=== PATIENT | male | born 1960 | race African-American/Black ===

== ENCOUNTER 2019-04-30 09:16 | Inpatient (IN) ==
[2019-04-30] MEDS ORDERED: SODIUM CHLORIDE 0.9% 1,000 ML IV STA (10:21)
[2019-04-30 10:35] LABS: Basophils # 0.2 10*3/uL (0.0-0.2); Eosinophils # 0.5 10*3/uL (0.0-0.87); Eosinophils % 4.8 % (0.00-10.9); Hematocrit 27.3 VOL% (42.0-52.0); Hemoglobin 8.6 GM/DL (14.0-18.0); Immature Granulocytes % 0.4 %; Immature Granulocytes Absolute 0.04 #; Lymphocytes # 4.1 10*3/uL (1.4-4.0); Lymphocytes % 42.3 % (21.2-54.2); Mean Corpuscular HGB Conc 31.5 GM/DL (32-36); Mean Corpuscular Volume 74.4 FL (87-102); Monocytes % 8.1 % (1.7-12.7); NRBC # 0.03 10*3/uL; Neutrophils % 42.4 % (38.7-73.9); Platelet Count 331 T/CUMM (130-400); Red Blood Count 3.67 MC/CUMM (3.8-5.5); Red Cell Distribution Width 22.8 % (9.3-17.3); White Blood Count 9.7 T/CUMM (4-12)
[2019-04-30 10:44] LABS: PT Patient Result 10.7 SECS (9.6-12.2); Partial Thromboplastin Time 36.2 SECS (20.8-36.0)
[2019-04-30 11:06] LABS: Alanine Aminotransferase 11 U/L (16-61); Albumin 3.1 G/DL (3.4-5.0); Alkaline Phosphatase 92 U/L (45-117); Aspartate Amino Transferase 15 U/L (0-37); Bilirubin,Total < 0.39 MG/DL (0.2-1.0); Blood Urea Nitrogen 71 MG/DL (7-18); Calcium 8.6 MG/DL (8.5-10.1); Estimated Glom Filtration Rate 10 ML/MIN; Glucose 106 MG/DL (74-106); Osmolality,Calculated 299.4 MOS/KG (273-304); Total Protein 8.5 G/DL (6.4-8.3); Troponin I < 0.015 NG/ML (0.00-0.045)
[2019-04-30] MEDS ORDERED: ACETAMINOPHEN 325 MG TABLET PO PRN (13:19)
[2019-04-30] MEDS ORDERED: ONDANSETRON 4 MG/2 ML VIAL IV PRN (13:19)
[2019-04-30] MEDS ORDERED: SODIUM BICARB INJ 50 MEQ in SODIUM CHLORIDE 0.45% 1,000 ML IV SCH (13:30)
[2019-04-30 18:00] LABS: Apearance,Urine CLEAR (Clear); Bilirubin,Urine Negative (Negative); Blood, Urine Small mg/dL (Negative); Glucose,Urine (UA) Negative (Negative); Hyaline Casts,Urine 4 /LPF (0-3); Ketones,Urine 5 mg/dL (Negative); Nitrite,Urine Negative (Negative); Protein,Urine 100 MG/DL; RBC,Urine 4 /HPF (0-4); Urine Color Yellow (Yellow); Urine Specific Gravity 1.012 (1.001-1.035); Urine Urobilinogen < 2.0 EU/DL (0.2-1.0); WBC,Urine 1 /HPF (0-6)
[2019-04-30] MEDS: MEGESTROL 40 MG TABLET PO SCH (20:31)
[2019-04-30] MEDS: FERROUS SULFATE 325 MG TABLET PO SCH (20:31)
[2019-04-30] MEDS: ENOXAPARIN 30 MG/0.3 ML SYRINGE SUBCUT SCH (20:31)
[2019-04-30] MEDS: SODIUM CHLORIDE 23.4% CONC INJ 38.5 MEQ, SODIUM BICARB INJ 100 MEQ in STERILE WATER INJ... IV SCH (20:46)
[2019-05-01 04:52] LABS: Basophils # 0.1 10*3/uL (0.0-0.2); Basophils % 1.4 % (0.0-0.8); Eosinophils # 0.4 10*3/uL (0.0-0.87); Eosinophils % 5.6 % (0.00-10.9); Hematocrit 24.6 VOL% (42.0-52.0); Immature Granulocytes % 0.7 %; Immature Granulocytes Absolute 0.05 #; Lymphocytes # 2.6 10*3/uL (1.4-4.0); Lymphocytes % 36.5 % (21.2-54.2); Mean Corpuscular HGB Conc 32.5 GM/DL (32-36); Mean Corpuscular Volume 72.8 FL (87-102); Monocytes % 10.7 % (1.7-12.7); NRBC # 0.02 10*3/uL; Neutrophils % 45.1 % (38.7-73.9); Platelet Count 244 T/CUMM (130-400); Red Blood Count 3.38 MC/CUMM (3.8-5.5); Red Cell Distribution Width 22.5 % (9.3-17.3); White Blood Count 7.1 T/CUMM (4-12)
[2019-05-01 05:11] LABS: Hypochromasia 1+; Ovalocytes Slight; Platelet Estimate Adequate
[2019-05-01 05:13] LABS: Calcium 7.6 MG/DL (8.5-10.1); Osmolality,Calculated 302.1 MOS/KG (273-304)
[2019-05-01] MEDS: PANTOPRAZOLE 40 MG TABLET PO SCH (08:23)
[2019-05-01] MEDS: CYANOCOBALAMIN 500 MCG TABLET PO SCH (08:23)
[2019-05-01] MEDS: SODIUM CHLORIDE 23.4% CONC INJ 38.5 MEQ, SODIUM BICARB INJ 100 MEQ in STERILE WATER INJ... IV SCH ×2 (08:23→22:17)
[2019-05-01] MEDS: MEGESTROL 40 MG TABLET PO SCH ×2 (08:23→21:11)
[2019-05-01] MEDS: FERROUS SULFATE 325 MG TABLET PO SCH ×2 (08:23→21:11)
[2019-05-01] MEDS ORDERED: MAGNESIUM SULF RIDER 2 GM in PREMIX 1 EACH IV PRN (08:43)
[2019-05-01] MEDS ORDERED: MAGNESIUM SULF RIDER 4 GM in PREMIX 1 EACH IV PRN (08:43)
[2019-05-01] MEDS ORDERED: ATENOLOL 50 MG TABLET PO SCH (09:00)
[2019-05-01] MEDS ORDERED: amLODIPine 10 MG TABLET PO SCH (09:00)
[2019-05-01] MEDS: SODIUM BICARBONATE 650 MG TABLET PO SCH (21:11)
[2019-05-01] MEDS: ENOXAPARIN 30 MG/0.3 ML SYRINGE SUBCUT SCH (21:11)
[2019-05-02 06:59] LABS: Basophils # 0.1 10*3/uL (0.0-0.2); Basophils % 0.9 % (0.0-0.8); Eosinophils # 0.3 10*3/uL (0.0-0.87); Eosinophils % 4.5 % (0.00-10.9); Hematocrit 20.1 VOL% (42.0-52.0); Immature Granulocytes % 0.5 %; Immature Granulocytes Absolute 0.04 #; Lymphocytes # 2.9 10*3/uL (1.4-4.0); Lymphocytes % 38.7 % (21.2-54.2); Mean Corpuscular HGB Conc 33.8 GM/DL (32-36); Mean Corpuscular Volume 70.5 FL (87-102); Neutrophils % 43.4 % (38.7-73.9); Platelet Count 246 T/CUMM (130-400); Red Blood Count 2.85 MC/CUMM (3.8-5.5); Red Cell Distribution Width 21.4 % (9.3-17.3); White Blood Count 7.6 T/CUMM (4-12)
[2019-05-02 07:00] LABS: Hemoglobin 6.8 GM/DL (14.0-18.0)
[2019-05-02 07:14] LABS: Anisocytosis 2+; Platelet Estimate Normal; Poikilocytosis 1+
[2019-05-02 07:15] LABS: Hypochromasia 1+; Macrocytosis Slight; Target Cells 2+
[2019-05-02 07:43] LABS: Calcium 7.6 MG/DL (8.5-10.1); Osmolality,Calculated 302.6 MOS/KG (273-304)
[2019-05-02 08:33] LABS: % Iron Saturation 32.4 % (18-50); Ferritin 453.9 ng/ml (26-388)
[2019-05-02 08:57] LABS: Hematocrit 23.1 VOL% (42.0-52.0); Hemoglobin 7.6 GM/DL (14.0-18.0)
[2019-05-02] MEDS: SODIUM BICARBONATE 650 MG TABLET PO SCH ×2 (09:20→21:01)
[2019-05-02] MEDS: SODIUM CHLORIDE 23.4% CONC INJ 38.5 MEQ, SODIUM BICARB INJ 100 MEQ in STERILE WATER INJ... IV SCH ×2 (09:21→22:24)
[2019-05-02] MEDS: MEGESTROL 40 MG TABLET PO SCH ×2 (09:21→21:00)
[2019-05-02] MEDS: PANTOPRAZOLE 40 MG TABLET PO SCH (09:21)
[2019-05-02] MEDS: CYANOCOBALAMIN 500 MCG TABLET PO SCH (09:21)
[2019-05-02] MEDS: FERROUS SULFATE 325 MG TABLET PO SCH ×2 (09:21→21:00)
[2019-05-02 09:40] LABS: Folate 4.7 NG/ML (5.4-24.0); Vitamin B12 > 2000 PG/ML (211-911)
[2019-05-02] MEDS ORDERED: SODIUM CHLORIDE 0.9% 1,000 ML IV PRN (09:57)
[2019-05-02 17:10] LABS: Hematocrit 27.5 VOL% (42.0-52.0); Hemoglobin 9.2 GM/DL (14.0-18.0)
[2019-05-02] MEDS: ACETAMINOPHEN 500 MG TABLET PO PRN (21:00)
[2019-05-02] MEDS: ENOXAPARIN 30 MG/0.3 ML SYRINGE SUBCUT SCH (21:01)
[2019-05-03 08:40] LABS: Calcium 6.9 MG/DL (8.5-10.1)
[2019-05-03] MEDS: MEGESTROL 40 MG TABLET PO SCH ×2 (09:12→21:34)
[2019-05-03] MEDS: SODIUM BICARBONATE 650 MG TABLET PO SCH ×2 (09:12→21:34)
[2019-05-03] MEDS: CYANOCOBALAMIN 500 MCG TABLET PO SCH (09:12)
[2019-05-03] MEDS: FERROUS SULFATE 325 MG TABLET PO SCH ×2 (09:12→21:37)
[2019-05-03] MEDS: PANTOPRAZOLE 40 MG TABLET PO SCH (09:12)
[2019-05-03] MEDS: ACETAMINOPHEN 500 MG TABLET PO PRN ×2 (09:17→21:34)
[2019-05-03] MEDS: SODIUM CHLORIDE 23.4% CONC INJ 38.5 MEQ, SODIUM BICARB INJ 100 MEQ in STERILE WATER INJ... IV SCH (10:31)
[2019-05-03] MEDS: POTASSIUM CHLORIDE 20 MEQ TABLET PO PRN ×3 (13:41→18:35)
[2019-05-03] MEDS: ENOXAPARIN 30 MG/0.3 ML SYRINGE SUBCUT SCH (21:36)
[2019-05-04 07:28] LABS: Calcium 7.2 MG/DL (8.5-10.1); Osmolality,Calculated 300.6 MOS/KG (273-304)
[2019-05-04] MEDS: PANTOPRAZOLE 40 MG TABLET PO SCH (09:22)
[2019-05-04] MEDS: CYANOCOBALAMIN 500 MCG TABLET PO SCH (09:22)
[2019-05-04] MEDS: FERROUS SULFATE 325 MG TABLET PO SCH (09:23)
[2019-05-04] MEDS: SODIUM BICARBONATE 650 MG TABLET PO SCH (09:23)
[2019-05-04] MEDS: MEGESTROL 40 MG TABLET PO SCH (09:23)
[2019-05-04 12:21] VITALS: BP 143/84
== END 2019-05-04 13:25 | disposition home or self-care (01) | DRG 469 ==
LOC: N.ED 09:16 → SUPCPDRO 13:19 → SUATTDRO 13:19 → N.EDINP 13:19 → N.2E 14:02
PROVIDERS: ADMIT Internal Medicine; ATTEND Internal Medicine

== ENCOUNTER 2019-07-07 07:32 | Inpatient (IN) ==
[2019-07-07] MEDS ORDERED: methylPREDNISolone SOD SUC 125 MG/2 ML VIAL IV STA (07:48)
[2019-07-07] MEDS ORDERED: ALBUTEROL 2.5 MG/3 ML NEB RESP TX SCH (08:00)
[2019-07-07 08:03] LABS: Basophils # 0.1 10*3/uL (0.0-0.2); Basophils % 0.6 % (0.0-0.8); Eosinophils # 0.6 10*3/uL (0.0-0.87); Eosinophils % 3.2 % (0.00-10.9); Hematocrit 30.1 VOL% (42.0-52.0); Hemoglobin 9.6 GM/DL (14.0-18.0); Immature Granulocytes % 0.5 %; Immature Granulocytes Absolute 0.09 #; Lymphocytes # 5.9 10*3/uL (1.4-4.0); Lymphocytes % 34.3 % (21.2-54.2); Mean Corpuscular HGB Conc 31.9 GM/DL (32-36); Mean Corpuscular Volume 80.3 FL (87-102); Monocytes % 7.6 % (1.7-12.7); Neutrophils % 53.8 % (38.7-73.9); Platelet Count 250 T/CUMM (130-400); Red Blood Count 3.75 MC/CUMM (3.8-5.5); Red Cell Distribution Width 20.3 % (9.3-17.3); White Blood Count 17.1 T/CUMM (4-12)
[2019-07-07 08:10] LABS: PT Patient Result 10.9 SECS (9.6-12.2); Partial Thromboplastin Time 28.1 SECS (20.8-36.0)
[2019-07-07 08:32] LABS: ABG HCO3 17.7 MMOL/L (20-26); ABG Oxygen Saturation 77.1 % (95-100); ABG PCO2 35.3 MM HG (35-48); ABG PH 7.307 (7.35-7.45); ABG PO2 48.9 MM HG (80-95); ABG TCO2 15.6 MMOL/L (23-27)
[2019-07-07 08:33] LABS: Alanine Aminotransferase 9 U/L (16-61); Albumin 2.8 G/DL (3.4-5.0); Alkaline Phosphatase 67 U/L (45-117); Aspartate Amino Transferase 15 U/L (0-37); Bilirubin,Total < 0.39 MG/DL (0.2-1.0); Blood Urea Nitrogen 58 MG/DL (7-18); Calcium 7.5 MG/DL (8.5-10.1); Estimated Glom Filtration Rate 10 ML/MIN; Glucose 143 MG/DL (74-106); Osmolality,Calculated 298.3 MOS/KG (273-304)
[2019-07-07] MEDS ORDERED: FUROSEMIDE 40 MG/4 ML VIAL IV STA (08:35)
[2019-07-07] MEDS ORDERED: LEVOFLOXACIN INJ 500 MG in PREMIX 1 EACH IV STA (08:35)
[2019-07-07] MEDS ORDERED: ONDANSETRON 4 MG/2 ML VIAL ONE (08:48)
[2019-07-07 09:05] LABS: Apearance,Urine CLEAR (Clear); Bilirubin,Urine Negative (Negative); Blood, Urine Small mg/dL (Negative); Glucose,Urine (UA) 50 mg/dL (Negative); Ketones,Urine Negative (Negative); Nitrite,Urine Negative (Negative); Protein,Urine >=500 MG/DL; RBC,Urine 6 /HPF (0-4); Urine Color Straw (Yellow); Urine Specific Gravity 1.012 (1.001-1.035); Urine Urobilinogen < 2.0 EU/DL (0.2-1.0)
[2019-07-07] MEDS ORDERED: PROMETHAZINE 25 MG/1 ML VIAL IM PRN (09:13)
[2019-07-07] MEDS ORDERED: ONDANSETRON 4 MG/2 ML VIAL IV PRN (09:13)
[2019-07-07] MEDS ORDERED: MORPHINE 4 MG/1 ML VIAL IV PRN (09:13)
[2019-07-07 10:02] LABS: ABG Base Excess -10.3 MMOL/L (-2.5-2.5); ABG HCO3 14.7 MMOL/L (20-26); ABG Oxygen Saturation 84.2 % (95-100); ABG PCO2 29.5 MM HG (35-48); ABG PH 7.316 (7.35-7.45); ABG PO2 54.4 MM HG (80-95); ABG TCO2 15.6 MMOL/L (23-27)
[2019-07-07 10:47] LABS: Protein/Creatinine Ratio,Urine 7.8 RATIO
[2019-07-07] MEDS: PANTOPRAZOLE 40 MG TABLET PO SCH (10:49)
[2019-07-07] MEDS ORDERED: MAGNESIUM SULF RIDER 4 GM in PREMIX 1 EACH IV ONE (11:30)
[2019-07-07] MEDS ORDERED: ACETAMINOPHEN 500 MG TABLET PO ONE (12:00)
[2019-07-07] MEDS: metOLazone 5 MG TABLET PO SCH (12:52)
[2019-07-07] MEDS: ALBUTEROL/IPRATROPIUM 3 ML NEB RESP TX SCH ×2 (13:30→20:12)
[2019-07-07] MEDS: FUROSEMIDE 40 MG/4 ML VIAL IV SCH (16:13)
[2019-07-07] MEDS: predniSONE 20 MG TABLET PO SCH (20:51)
[2019-07-07] MEDS: ACETAMINOPHEN 325 MG TABLET PO PRN (22:01)
[2019-07-08] MEDS: ALBUTEROL/IPRATROPIUM 3 ML NEB RESP TX SCH ×4 (00:16→19:47)
[2019-07-08 05:26] LABS: Hematocrit 24.2 VOL% (42.0-52.0); Immature Granulocytes % 0.6 %; Immature Granulocytes Absolute 0.03 #; Lymphocytes # 0.9 10*3/uL (1.4-4.0); Lymphocytes % 17.1 % (21.2-54.2); Mean Corpuscular HGB Conc 33.1 GM/DL (32-36); Mean Corpuscular Volume 78.1 FL (87-102); Monocytes % 4.3 % (1.7-12.7); Platelet Count 173 T/CUMM (130-400); Red Cell Distribution Width 20.2 % (9.3-17.3); White Blood Count 5.1 T/CUMM (4-12)
[2019-07-08 05:45] LABS: Calcium 7.9 MG/DL (8.5-10.1); Osmolality,Calculated 290.1 MOS/KG (273-304)
[2019-07-08 05:47] LABS: Alanine Aminotransferase < 9 U/L (16-61); Albumin 2.7 G/DL (3.4-5.0); Alkaline Phosphatase 55 U/L (45-117); Aspartate Amino Transferase 10 U/L (0-37); Bilirubin,Total < 0.39 MG/DL (0.2-1.0); Blood Urea Nitrogen 58 MG/DL (7-18); Estimated Glom Filtration Rate 10 ML/MIN; Glucose 187 MG/DL (74-106); HDL Cholesterol 36 MG/DL (40-60); Hypochromasia 1+; Osmolality,Calculated 288.2 MOS/KG (273-304); Ovalocytes Slight; Platelet Estimate Adequate; Risk Ratio 3.14; Total Protein 7.2 G/DL (6.4-8.3); Triglycerides 109 MG/DL (2-150); VLDL CHOLESTEROL 21.8 MG/DL
[2019-07-08] MEDS: ACETAMINOPHEN 325 MG TABLET PO PRN ×2 (06:35→10:23)
[2019-07-08] MEDS ORDERED: predniSONE 10 MG TABLET ONE (08:10)
[2019-07-08] MEDS: metOLazone 5 MG TABLET PO SCH (09:06)
[2019-07-08] MEDS: predniSONE 20 MG TABLET PO SCH ×2 (09:06→21:02)
[2019-07-08] MEDS: FUROSEMIDE 40 MG/4 ML VIAL IV SCH ×2 (09:07→16:23)
[2019-07-08] MEDS: PANTOPRAZOLE 40 MG TABLET PO SCH (09:07)
[2019-07-08] MEDS: PIPERACILLIN/TAZOBACTAM 3,375 MG in SODIUM CHLORIDE 0.9% 100 ML IV SCH ×2 (10:24→23:47)
[2019-07-08] MEDS ORDERED: NON-FORMULARY MEDICATION (Adalimumab [Humira] 40 MG) SUBCUT SCH (10:45)
[2019-07-08] MEDS ORDERED: amLODIPine 10 MG TABLET PO ONE (12:18)
[2019-07-08] MEDS: FERROUS SULFATE 325 MG TABLET PO SCH ×4 (12:20→21:04)
[2019-07-08] MEDS: SODIUM BICARBONATE 650 MG TABLET PO SCH ×2 (12:20→21:02)
[2019-07-09] MEDS: ALBUTEROL/IPRATROPIUM 3 ML NEB RESP TX SCH ×2 (00:07→07:08)
[2019-07-09 04:49] LABS: Hematocrit 24.7 VOL% (42.0-52.0); Immature Granulocytes % 0.6 %; Immature Granulocytes Absolute 0.05 #; Lymphocytes % 12.5 % (21.2-54.2); Mean Corpuscular HGB Conc 32.4 GM/DL (32-36); Mean Corpuscular Volume 78.2 FL (87-102); Monocytes % 3.3 % (1.7-12.7); Neutrophils % 83.6 % (38.7-73.9); Platelet Count 196 T/CUMM (130-400); Red Blood Count 3.16 MC/CUMM (3.8-5.5); Red Cell Distribution Width 20.1 % (9.3-17.3); White Blood Count 7.9 T/CUMM (4-12)
[2019-07-09 05:16] LABS: Calcium 8.1 MG/DL (8.5-10.1); Osmolality,Calculated 296.8 MOS/KG (273-304)
[2019-07-09] MEDS ORDERED: SODIUM POLYSTYRENE SULFATE 15 GM/60 ML BOTTLE PO ONE (07:26)
[2019-07-09 07:37] VITALS: BP 168/95
[2019-07-09] MEDS ORDERED: FUROSEMIDE 80 MG TABLET PO SCH (08:00)
[2019-07-09] MEDS: metOLazone 5 MG TABLET PO SCH (08:49)
[2019-07-09] MEDS: predniSONE 20 MG TABLET PO SCH (08:49)
[2019-07-09] MEDS: SODIUM BICARBONATE 650 MG TABLET PO SCH (08:49)
[2019-07-09] MEDS: PANTOPRAZOLE 40 MG TABLET PO SCH (08:50)
[2019-07-09] MEDS: FERROUS SULFATE 325 MG TABLET PO SCH (08:50)
[2019-07-09] MEDS ORDERED: NON-FORMULARY MEDICATION (Omeprazole 40 MG) PO SCH (09:00)
[2019-07-09] MEDS ORDERED: hydrALAZINE 25 MG TABLET PO SCH (09:00)
[2019-07-09] MEDS ORDERED: LEVOFLOXACIN INJ 500 MG in PREMIX 1 EACH IV SCH (09:00)
[2019-07-09] MEDS ORDERED: atenoloL 50 MG TABLET PO SCH (09:00)
[2019-07-09] MEDS ORDERED: amLODIPine 10 MG TABLET PO SCH (09:00)
[2019-07-09] MEDS: PIPERACILLIN/TAZOBACTAM 3,375 MG in SODIUM CHLORIDE 0.9% 100 ML IV SCH (10:33)
== END 2019-07-09 11:26 | disposition home health service (06) | DRG 194 ==
LOC: EDBD → EDUNIT# → N.ED 07:32 → N.EDINP 09:13 → SUATTDRO 09:13 → N.2E 09:56
PROVIDERS: ADMIT Internal Medicine; ATTEND Internal Medicine

== ENCOUNTER 2020-07-25 11:24 | Inpatient (IN) ==
[2020-07-25] MEDS ORDERED: ONDANSETRON 4 MG/2 ML VIAL IV STA (11:42)
[2020-07-25] MEDS ORDERED: HYDROmorphone 2 MG/1 ML VIAL IV STA (11:42)
[2020-07-25 12:30] LABS: Basophils # 0.1 10*3/uL (0.0-0.2); Basophils % 0.9 % (0.0-0.8); Eosinophils # 0.1 10*3/uL (0.0-0.87); Eosinophils % 1.8 % (0.00-10.9); Hematocrit 30.1 VOL% (42.0-52.0); Hemoglobin 9.9 GM/DL (14.0-18.0); Immature Granulocytes % 0.8 %; Immature Granulocytes Absolute 0.06 #; Lymphocytes # 3.1 10*3/uL (1.4-4.0); Lymphocytes % 40.3 % (21.2-54.2); Mean Corpuscular HGB Conc 32.9 GM/DL (32-36); Mean Corpuscular Volume 79.4 FL (87-102); Mean Platelet Volume 12.7 FL (9.6-12.0); Monocytes % 10.8 % (1.7-12.7); NRBC # 0.05 10*3/uL; Neutrophils % 45.4 % (38.7-73.9); Platelet Count 162 T/CUMM (130-400); Red Blood Count 3.79 MC/CUMM (3.8-5.5); Red Cell Distribution Width 16.6 % (9.3-17.3); White Blood Count 7.8 T/CUMM (4-12)
[2020-07-25 12:43] LABS: INR 1.1; PT Patient Result 11.4 SECS (9.8-11.9); Partial Thromboplastin Time 27.9 SECS (23.9-33.8)
[2020-07-25 12:44] LABS: Albumin 2.7 G/DL (3.4-5.0); Bilirubin,Total 0.8 MG/DL (0.2-1.0); Calcium 8.7 MG/DL (8.5-10.1); Osmolality,Calculated 275.1 MOS/KG (273-304); Potassium 3.2 MMOL/L (3.5-5.1); Total Protein 7.7 G/DL (6.4-8.3)
[2020-07-25 12:59] LABS: Band Neutrophils 2 % (0-10); Eosinophils 1 % (0-10); Lymphocytes 39 % (20-55); Segmented Neutrophils 47 % (50-85); Total Cells Counted 100
[2020-07-25 13:00] LABS: Anisocytosis 2+; Hypochromasia 1+; Macrocytosis Slight; Platelet Estimate Normal; Poikilocytosis Slight
[2020-07-25] MEDS ORDERED: ceFAZolin 1,000 MG in SYRINGE 1 EACH IV ONE (13:19)
[2020-07-25] MEDS ORDERED: GLUCAGON 1 MG VIAL IM PRN (14:02)
[2020-07-25] MEDS ORDERED: hydrALAZINE 20 MG/1 ML VIAL IV PRN (14:02)
[2020-07-25] MEDS ORDERED: ACETAMINOPHEN 325 MG TABLET PO PRN (14:02)
[2020-07-25] MEDS ORDERED: ONDANSETRON 4 MG/2 ML VIAL IV PRN ×2 (14:02→17:55)
[2020-07-25] MEDS ORDERED: DEXTROSE 50% 25 GM/50 ML VIAL IV PRN (14:02)
[2020-07-25] MEDS ORDERED: LIDOCAINE 2% 5 ML VIAL ONE (15:21)
[2020-07-25] MEDS ORDERED: MIDAZOLAM 2 MG/2 ML VIAL ONE (15:21)
[2020-07-25] MEDS ORDERED: SEVOFLURANE 1 UNIT/15 MINUTE INH ONE ×6 (15:21→17:06)
[2020-07-25] MEDS ORDERED: propofoL 200 MG/20 ML VIAL IV ONE (15:21)
[2020-07-25] MEDS ORDERED: fentaNYL 100 MCG/2 ML VIAL ONE (15:21)
[2020-07-25] MEDS ORDERED: ROCURONIUM 50 MG/5 ML VIAL IV ONE (15:21)
[2020-07-25] MEDS ORDERED: BACITRACIN OINT 0.9 GM PACK TOP ONE (15:30)
[2020-07-25] MEDS ORDERED: PHENYLEPHRINE 1 MG/10 ML SYRINGE IV ONE ×2 (16:13)
[2020-07-25] MEDS ORDERED: ceFAZolin 1,000 MG VIAL ONE (16:24)
[2020-07-25] MEDS ORDERED: SODIUM CHLORIDE 0.9% 250 ML IV ONE (16:24)
[2020-07-25] MEDS ORDERED: ACETAMINOPHEN 1,000 MG/100 ML VIAL IV ONE (16:55)
[2020-07-25] MEDS ORDERED: NEOSTIGMINE 10 MG/10 ML VIAL ONE ×3 (17:07)
[2020-07-25] MEDS ORDERED: MAGNESIUM HYDROXIDE SUSP 30 ML UDCUP PO PRN (17:28)
[2020-07-25] MEDS ORDERED: MORPHINE 4 MG/1 ML VIAL IV PRN (17:28)
[2020-07-25] MEDS: HYDROmorphone 2 MG/1 ML VIAL IV PRN ×4 (18:00→18:15)
[2020-07-25] MEDS: DOCUSATE SODIUM 100 MG CAPSULE PO SCH (21:21)
[2020-07-25] MEDS: ceFAZolin 1,000 MG in SYRINGE 1 EACH IV SCH (23:01)
[2020-07-26 05:35] LABS: Basophils # 0.1 10*3/uL (0.0-0.2); Basophils % 0.6 % (0.0-0.8); Eosinophils # 0.1 10*3/uL (0.0-0.87); Eosinophils % 0.8 % (0.00-10.9); Hematocrit 28.5 VOL% (42.0-52.0); Hemoglobin 9.3 GM/DL (14.0-18.0); Immature Granulocytes % 0.6 %; Immature Granulocytes Absolute 0.06 #; Lymphocytes # 1.4 10*3/uL (1.4-4.0); Lymphocytes % 14.7 % (21.2-54.2); Mean Corpuscular HGB Conc 32.6 GM/DL (32-36); Mean Corpuscular Volume 79.4 FL (87-102); Mean Platelet Volume 12.3 FL (9.6-12.0); Monocytes % 9.8 % (1.7-12.7); NRBC # 0.04 10*3/uL; Neutrophils % 73.5 % (38.7-73.9); Platelet Count 131 T/CUMM (130-400); Red Blood Count 3.59 MC/CUMM (3.8-5.5); Red Cell Distribution Width 16.5 % (9.3-17.3); White Blood Count 9.8 T/CUMM (4-12)
[2020-07-26 06:23] LABS: Albumin 2.6 G/DL (3.4-5.0); Bilirubin,Total 1.2 MG/DL (0.2-1.0); Calcium 8.3 MG/DL (8.5-10.1); Osmolality,Calculated 273.4 MOS/KG (273-304); Potassium 3.8 MMOL/L (3.5-5.1); Risk Ratio 1.94; Thyroid Stimulating Hormone 1.35 uIU/ml (0.358-3.74); Total Protein 7.1 G/DL (6.4-8.3); VLDL CHOLESTEROL 30.4 MG/DL
[2020-07-26] MEDS: ceFAZolin 1,000 MG in SYRINGE 1 EACH IV SCH (08:25)
[2020-07-26] MEDS: allopurinoL 100 MG TABLET PO SCH (08:28)
[2020-07-26] MEDS: PANTOPRAZOLE 40 MG TABLET PO SCH (08:28)
[2020-07-26] MEDS: amLODIPine 10 MG TABLET PO SCH (08:28)
[2020-07-26] MEDS: DOCUSATE SODIUM 100 MG CAPSULE PO SCH ×2 (08:28→20:54)
[2020-07-26] MEDS: atenoloL 50 MG TABLET PO SCH (08:28)
[2020-07-26] MEDS ORDERED: HEPARIN 10,000 UNIT/10 ML VIAL IV PRN (12:10)
[2020-07-26] MEDS ORDERED: TUBERCULIN SKIN TEST 0.1 ML SYRINGE INTRADERM ONE (14:49)
[2020-07-26] MEDS: HEPARIN 5,000 UNIT/1 ML VIAL SUBCUT SCH (17:53)
[2020-07-27] MEDS: HEPARIN 5,000 UNIT/1 ML VIAL SUBCUT SCH (05:59)
[2020-07-27 06:08] LABS: Basophils # 0.1 10*3/uL (0.0-0.2); Basophils % 0.6 % (0.0-0.8); Eosinophils # 0.2 10*3/uL (0.0-0.87); Eosinophils % 1.9 % (0.00-10.9); Hematocrit 22.3 VOL% (42.0-52.0); Hemoglobin 7.3 GM/DL (14.0-18.0); Immature Granulocytes % 0.6 %; Immature Granulocytes Absolute 0.05 #; Lymphocytes # 2.2 10*3/uL (1.4-4.0); Lymphocytes % 27.9 % (21.2-54.2); Mean Corpuscular HGB Conc 32.7 GM/DL (32-36); Mean Corpuscular Volume 80.2 FL (87-102); Monocytes % 10.4 % (1.7-12.7); NRBC # 0.02 10*3/uL; Neutrophils % 58.6 % (38.7-73.9); Platelet Count 94 T/CUMM (130-400); Red Blood Count 2.78 MC/CUMM (3.8-5.5); Red Cell Distribution Width 16.7 % (9.3-17.3); White Blood Count 7.8 T/CUMM (4-12)
[2020-07-27 06:25] LABS: Bilirubin,Total 1.5 MG/DL (0.2-1.0); Osmolality,Calculated 272.2 MOS/KG (273-304); Potassium 3.4 MMOL/L (3.5-5.1); Total Protein 6.2 G/DL (6.4-8.3)
[2020-07-27 07:18] VITALS: BP 104/54
[2020-07-27] MEDS ORDERED: SODIUM CHLORIDE 0.9% 1,000 ML IV PRN (07:38)
[2020-07-27 08:36] LABS: Basophils # 0.1 10*3/uL (0.0-0.2); Basophils % 0.6 % (0.0-0.8); Eosinophils # 0.2 10*3/uL (0.0-0.87); Eosinophils % 1.8 % (0.00-10.9); Hematocrit 24.6 VOL% (42.0-52.0); Hemoglobin 7.8 GM/DL (14.0-18.0); Immature Granulocytes % 0.3 %; Immature Granulocytes Absolute 0.03 #; Lymphocytes # 2.5 10*3/uL (1.4-4.0); Lymphocytes % 28.3 % (21.2-54.2); Mean Corpuscular HGB Conc 31.7 GM/DL (32-36); Mean Corpuscular Volume 81.7 FL (87-102); Mean Platelet Volume 11.8 FL (9.6-12.0); Monocytes % 11.2 % (1.7-12.7); Neutrophils % 57.8 % (38.7-73.9); Platelet Count 102 T/CUMM (130-400); Red Blood Count 3.01 MC/CUMM (3.8-5.5); Red Cell Distribution Width 17.4 % (9.3-17.3); White Blood Count 8.7 T/CUMM (4-12)
[2020-07-27] MEDS: amLODIPine 10 MG TABLET PO SCH (08:43)
[2020-07-27] MEDS: DOCUSATE SODIUM 100 MG CAPSULE PO SCH (08:43)
[2020-07-27] MEDS: allopurinoL 100 MG TABLET PO SCH (08:43)
[2020-07-27] MEDS: PANTOPRAZOLE 40 MG TABLET PO SCH (08:44)
[2020-07-27] MEDS: atenoloL 50 MG TABLET PO SCH (08:44)
[2020-07-27 08:50] LABS: Eosinophils 4 % (0-10); Lymphocytes 27 % (20-55); Platelet Estimate Adequate; Segmented Neutrophils 63 % (50-85); Total Cells Counted 100
[2020-07-27 08:51] LABS: Hypochromasia 3+; Polychromasia Slight
[2020-07-27 18:31] LABS: Eosinophils 3 % (0-10); Lymphocytes 26 % (20-55); Platelet Estimate Decreased; Segmented Neutrophils 59 % (50-85); Total Cells Counted 100
== END 2020-07-27 16:25 | DRG 313 ==
LOC: N.ED 11:24 → N.3E 16:05 → SUATTDRO 17:42 → N.3E 17:42
PROVIDERS: ADMIT Family Medicine; ATTEND Internal Medicine

== ENCOUNTER 2021-01-23 18:24 | Observation (INO) ==
[2021-01-23] MEDS ORDERED: DEXTROSE 50% 25 GM/50 ML VIAL IV PRN (20:33)
[2021-01-23] MEDS ORDERED: ACETAMINOPHEN 325 MG TABLET PO PRN (20:33)
[2021-01-23] MEDS ORDERED: GLUCAGON 1 MG VIAL IM PRN (20:33)
[2021-01-23] MEDS ORDERED: DOCUSATE SODIUM 100 MG CAPSULE PO PRN (20:33)
[2021-01-23] MEDS ORDERED: ONDANSETRON 4 MG/2 ML VIAL IV PRN (20:33)
[2021-01-24 06:54] LABS: Basophils # 0.1 10*3/uL (0.0-0.2); Basophils % 1.2 % (0.0-0.8); Eosinophils # 0.1 10*3/uL (0.0-0.87); Hematocrit 34.9 VOL% (42.0-52.0); Hemoglobin 10.9 GM/DL (14.0-18.0); Immature Granulocytes % 0.5 %; Immature Granulocytes Absolute 0.02 #; Lymphocytes # 1.8 10*3/uL (1.4-4.0); Lymphocytes % 45.6 % (21.2-54.2); Mean Corpuscular HGB Conc 31.2 GM/DL (32-36); Mean Corpuscular Volume 80.2 FL (87-102); Neutrophils % 36.7 % (38.7-73.9); Red Blood Count 4.35 MC/CUMM (3.8-5.5); Red Cell Distribution Width 19.1 % (9.3-17.3)
[2021-01-24 07:06] LABS: Platelet Count 92 T/CUMM (130-400)
[2021-01-24 07:13] LABS: INR 1.1; PT Patient Result 11.8 SECS (10.5-12.0)
[2021-01-24 07:22] LABS: Eosinophils 1 % (0-10); Hypochromasia Slight; Lymphocytes 48 % (20-55); Microcytosis Slight; Platelet Estimate Decreased; Segmented Neutrophils 40 % (50-85); Total Cells Counted 100
[2021-01-24 07:54] LABS: Osmolality,Calculated 279.4 MOS/KG (273-304); Potassium 2.6 MMOL/L (3.5-5.1)
[2021-01-24] MEDS ORDERED: POTASSIUM CHLORIDE 20 MEQ TABLET PO ONE ×2 (09:00→09:17)
[2021-01-24] MEDS: POTASSIUM CHLORIDE RIDER 10 MEQ/100 ML PREMIX IV PRN ×3 (11:02→13:50)
[2021-01-24 11:14] VITALS: BP 144/57
[2021-01-25] MEDS ORDERED: atenoloL 50 MG TABLET PO SCH (09:00)
[2021-01-25] MEDS ORDERED: MULTIVITAMIN (BEROCCA) TABLET PO SCH (09:00)
[2021-01-25] MEDS ORDERED: allopurinoL 100 MG TABLET PO SCH (09:00)
[2021-01-25] MEDS ORDERED: amLODIPine 10 MG TABLET PO SCH (09:00)
== END 2021-01-24 15:38 | disposition home or self-care (01) ==
LOC: EDUNIT# → EDBD → N.ED 18:24 → N.EDINP 18:24 → N.3E 22:39
PROVIDERS: ADMIT Hospitalist; ATTEND Hospitalist